=== PATIENT | male | born 1955 | race Caucasian/White ===

== ENCOUNTER → 2018-03-15 | Outpatient (CLI) | payer OTHER ==
[~2018-03-15] MED LIST: KEPPRA1000 MG
[2018-03-15 15:45] LABS: ABSOLUTE EOSINOPHILS 0.1 thou/uL (0.0-0.7); ABSOLUTE LYMPHOCYTES 1.4 thou/uL (0.8-5.3); ABSOLUTE MONOCYTES 0.3 thou/uL (0.0-1.2); ABSOLUTE NEUTROPHILS 2.8 thou/uL (1.6-8.1); BASOPHILS 0.8 %; EOSINOPHILS 1.2 %; HEMATOCRIT 47.4 % (42.0-52.0); HEMOGLOBIN 16.2 gm/dL (14.0-18.0); LYMPHOCYTES 30.4 %; MCH 31.7 pg (26.0-34.0); MCHC 34.2 g/dL (28.0-37.0); MCV 92.8 fL (80.0-100.0); MONOCYTES 7.4 %; MPV 9.8 fl. (7.2-11.1); NUCLEATED RBCS 0 /100WBC; PLATELET COUNT* 166 thou/uL (150-400); POLYS 60.2 %; RBC 5.11 mil/uL (4.50-6.00); RDW-CV 12.5 % (10.5-14.5); WBC 4.7 thou/uL (4.0-11.0)
[2018-03-15 15:58] LABS: ALBUMIN 3.7 g/dL (3.4-5.0); ALKALINE PHOSPHATASE 79 U/L (46-116); ANION GAP 5 mmol/L (7-16); BUN 9 mg/dL (7-18); CHLORIDE 105 mmol/L (98-107); CHOLESTEROL 167 mg/dL (<200); CO2 32 mmol/L (21-32); GLUCOSE 88 mg/dL (70-99); HDL CHOLESTEROL 59 mg/dL (>40); LDL CHOLESTEROL 97 mg/dL (<100); POTASSIUM 4.1 mmol/L (3.5-5.1); SGOT 14 U/L (15-37); SGPT 28 U/L (30-65); SODIUM 142 mmol/L (136-145); TC:HDL 2.8 Ratio (Not establshd); TOTAL BILIRUBIN 0.3 mg/dL (<0.1-1.0); TOTAL PROTEIN 6.9 g/dL (6.4-8.2); TRIGLYCERIDE 57 mg/dL (<150); VLDL 11 mg/dL (<40)
[2018-03-15 15:59] LABS: SERUM ASSESSMENT Clear
== END ==
LOC: M.LAB 15:13
PROVIDERS: Internal Medicine
DX: Z00.00 Encounter for general adult medical examination without abnormal findings (principal); Z12.5 Encounter for screening for malignant neoplasm of prostate; R53.83 Other fatigue; E78.00 Pure hypercholesterolemia, unspecified; R73.01 Impaired fasting glucose; R35.0 Frequency of micturition; Z79.899 Other long term (current) drug therapy